=== PATIENT | male | born 1970 | race Caucasian/White ===

== ENCOUNTER 2023-08-18 11:56 | Emergency (ER) | payer OTHER ==
[~2023-08-18] VITALS: Ht 177.8 cm; Wt 81.0 kg
[~2023-08-18 11:56] MED LIST: LISI1TAB11 PO
[2023-08-18 12:26] VITALS: BP 128/83; PULSE 80; RESP 16; TEMP 98.2
[2023-08-18] MEDS ORDERED: LISI30TA4 PO (12:26)
[2023-08-18] MEDS ORDERED: HYDR-4527 PO (12:26)
[2023-08-18] MEDS ORDERED: ZOLP-162 PO (12:26)
[2023-08-18] MEDS ORDERED: OMEP20CA12 PO (12:26)
[2023-08-18 13:12] LABS: APPEARANCE,URINE TURBID (CLEAR); BILIRUBIN,URINE NEGATIVE (NEGATIVE); COLOR,URINE YELLOW (YELLOW); GLUCOSE, URINE (UA) NEGATIVE (NEGATIVE); KETONES,URINE NEGATIVE (NEGATIVE); LEUKOCYTE ESTERASE ,URINE LARGE (NEGATIVE); NITRATE,URINE NEGATIVE (NEGATIVE); OCCULT BLOOD,URINE LARGE (NEGATIVE); PH,URINE 5.5 (5.0-8.0); PROTEIN,URINE 100-200,SEE CONFIRM mg/dL (NEGATIVE); SPECIFIC GRAVITIY, URINE 1.013 (1.003-1.030); UROBILINOGEN,URINE <=1.0 mg/dL (<=1.0)
[2023-08-18 13:20] LABS: SULFOSALICYLIC ACID,URINE 2+ (Negative)
[2023-08-18 13:21] LABS: BACTERIA,URINE Many /HPF (None Seen); WBC,URINE 51-100 /HPF (0-5)
[2023-08-18] MEDS ORDERED: CEPH-558 PO (13:35)
[2023-08-18] MEDS: CEPHALEXIN MONOHYDRATE 500 MG CAPSULE PO ONE (13:48)
== END 2023-08-18 13:57 | disposition home or self-care (01) ==
LOC: EMS 11:56
DX: N39.0 Urinary tract infection, site not specified (principal); R31.9 Hematuria, unspecified; R30.0 Dysuria; I10 Essential (primary) hypertension; Z79.899 Other long term (current) drug therapy
CPT/HCPCS: 81001; 81002; 87086; 87186; 99283

== ENCOUNTER → 2023-09-23 | Emergency (ER) | payer OTHER ==
[~2023-09-23] VITALS: Ht 177.8 cm; Wt 93.2 kg
[~2023-09-23] MED LIST changes: +CEPH-558 PO; +HYDR-4527 PO; +LEVO-72 PO; +LISI30TA4 PO; +OMEP20CA12 PO; +ZOLP-162 PO
[2023-09-23 10:00] VITALS: BP 158/118; PULSE 105; RESP 18; TEMP 98.1
[2023-09-23 10:45] LABS: APPEARANCE,URINE HAZY (CLEAR); BILIRUBIN,URINE NEGATIVE (NEGATIVE); COLOR,URINE YELLOW (YELLOW); GLUCOSE, URINE (UA) NEGATIVE (NEGATIVE); KETONES,URINE NEGATIVE (NEGATIVE); LEUKOCYTE ESTERASE ,URINE LARGE (NEGATIVE); NITRATE,URINE POSITIVE (NEGATIVE); OCCULT BLOOD,URINE SMALL (NEGATIVE); PH,URINE 5.5 (5.0-8.0); PROTEIN,URINE TRACE mg/dL (NEGATIVE); SPECIFIC GRAVITIY, URINE 1.017 (1.003-1.030); UROBILINOGEN,URINE <=1.0 mg/dL (<=1.0)
[2023-09-23 10:51] LABS: WBC,URINE >100 /HPF (0-5)
[2023-09-23 10:52] LABS: BACTERIA,URINE Many /HPF (None Seen)
[2023-09-23] MEDS: LEVOFLOXACIN 250 MG TABLET PO ONE (11:16)
== END | disposition home or self-care (01) ==
LOC: EMS 09:53
DX: N39.0 Urinary tract infection, site not specified (principal); R35.0 Frequency of micturition; I10 Essential (primary) hypertension; Z79.899 Other long term (current) drug therapy
CPT/HCPCS: 81001; 87086; 87186; 99283